=== PATIENT | male | born 1990 | race Hispanic/Latino ===

== ENCOUNTER 2021-10-02 12:33 | Emergency (ER) | payer OTHER, SELFPAY ==
--- OUTSIDE RECORDS SUMMARY | 2021-10-02 12:36 | XMS REPORT | Continuity of Care Document ---
:1990 Author Organization [facility] t Address [address] [place] [address] Care Team Providers Name Role Phone PCP, DOES NOT HAVE A Primary Care Physician Unavailable Reji Attending Clinician [phone] Jhonatan Attending Clinician Unavailable Timur Attending Clinician Unavailable Edita Attending Clinician Unavailable LAB53 Attending Clinician Unavailable Philip MONTERO Attending Clinician UNKNOWN Attending Clinician Unavailable Dennys PENN Attending Clinician Unavailable HOMERO PATEL Attending Clinician Unavailable Dennis Green Attending Clinician Unavailable Irena Attending Clinician Unavailable Blake LINN Attending Clinician Unavailable Physician, Primary or Family Admitting Clinician Unavailabl e Reji Unavailable [phone] Payers Payer Name Policy Type Policy Number Effective Date Expiration Date S ource Title X 11 [id number] 2021 2022 [facility]:00[facility]00 [facility]00[facility] [id number] 2021 00:00:00 Problems Condition Condition Condition Status Onset Resolution Last Treating Co mments Source Name Details Category Date Date Treatment Clinician Date BMI Condition Active 2021-06-13 Fernandez Mendoza 37.0-37.9 06-13 15:30:32 Vidhi Comm uni 00:00: ty 00 Health Obesity Condition Active 2021-06-13 Davidson Mendozaacy 06-13 15:30:32 Vidhi Communi 00:00: ty 00 Health Syphilis Condition Active 2021-06-06 Reji [facility] 06-06 10:52:06 Vidhi Communi 00:00: ty 00 Health Macular Condition Active 2021-06-03 Davidson Mendoza erythemato 05-31 21:49:36 Vidhi Com jairon us rash 00:00: ty 00 Health Joint Condition Active 2021-06-03 Fernandez Mendoza swelling 05-31 21:49:36 Vidhi Commu ni 00:00: ty 00 Health High risk Condition Active 2021-06-03 Elton Mendoza sexual 05-31 21:49:36 Vidhi Communi behavior 00:00: ty 00 Health Multiple Condition Active 2021-06-03 Elton Mendoza joint pain 05-31 21:49:36 Vidhi Com jairon 00:00: ty 00 Health No known No known Disease Kelse y active active Seybold problems problems Allergies, Adverse Reactions, Alerts Allergy Allergy Status Severity Reaction(s) Onset Inactive Treating Comm ents Source Name Type Date Date Clinician No Known DA Active U 2016-03 [facility] Allergie 2- Clear s 00:00: Titus 00 [facility] NO KNOWN Drug Active [facility] ALLERGIE Class ity of S [facility] Social History Social Habit Start Date Stop Date Quantity Comments Source Exposure to Not sure Haley brown SARS-CoV-2 (event) time of call 2021-07-04 2021-07-04 [facility] 14[facility] 14[facility]47[facility]40 PM Health alcohol use 2021-06-20 2021-06-20 Currently [facility] 09:35:54 09:35:54 Health drug use 2021-06-20 2021-06-20 Never [facility] ty 09:35:54 09:35:54 Health PHQ2 Questionairre 2021-06-20 2021-06-20 [facility] Score 09:35:54 09:35:54 Health is there any chance 2021-06-20 2021-06-20 No [facility] that you could be 09:35:54 09:35:54 Health ? social history E&M 2021-06-20 2021-06-20 Complicated/Open [facility] 09:35:54 09:35:54 . Not homeless. Health Employed. Sex at : Male. Sexual orientation: Lewis. Gender identity: Male. Age of first sexual intercourse: 20. Sexually Active: Yes. social history 2021-06-20 2021-06-20 reviewed today [facility] reviewed E&M 09:35:54 09:35:54 Health assessment of health 2021-06-20 2021-06-20 Adequate Lega cy Community literacy (NCQA [facility] 09:35:54 09:35:54 [facility] 2014 Standards, 3C10) passive cigarette 2021-06-20 2021-06-20 No [facility] smoke exposure 09:35:54 09:35:54 Health if the patient is 2021-06-20 2021-06-20 No [facility] using/has used a 09:35:54 09:35:54 Health vaping item, Current, Former, Never Used, Not asked sexual orientation 2021-06-20 2021-06-20 Lewis [facility] 09:35:54 09:35:54 Health patient considered to 2021-06-06 2021-06-06 No Leg acy Community be homeless 09:23:50 09:23:50 Health number of sexual 2021-04-24 2021-04-24 [facility] partners in last year 16:57:45 16:57:45 [facility] Gender of previous 2021-04-24 2021-04-24 Men [facility] sexual partner(s) 16:57:45 16:57:45 Health Gender of current 2021-04-24 2021-04-24 Men [facility] sexual partner(s) 16:57:45 16:57:45 Health high risk sexual 2021-04-24 2021-04-24 Yes Leg[facility]olyn [facility] ommunity behaviors 16:57:45 16:57:45 Health Have you ever 2021-04-24 2021-04-24 Yes Elton Comm unity received or given 16:57:45 16:57:45 Health money for drugs or sex? sex at 2021-04-24 2021-04-24 Male Elton Commu nity 16:57:45 16:57:45 Health Gender that patient 2021-04-24 2021-04-24 Men Betty Community is attracted to 16:57:45 16:57:45 Health Number of Partners in 2021-04-24 2021-04-24 Leg yenny [facility] Last 60 Days 16:57:45 16:57:45 Health Alcohol intake 2021-03-30 2021-03-30 Current drinker Kelse y Seybold 00:00:00 00:00:00 of alcohol (finding) Smoking Status Start Date Stop Date Source Never smoked tobacco (finding) [facility] Medications Ordered Filled Start Stop Current Ordering Indication Dosage Frequency Signature Comments Components Source Medication Medication Date Date Medication? Clinician (SIG) Name Name (KETOCONAZO Yes Vidhi Hanson Elton FERNANDEZ) 2 % 3-24 Reji with Communi SHAM 00:00: liberally ty 00 as Health directed three times a week for 4 weeks, then as needed for control Acetaminoph Yes [id number] 650mg Q8H Take 1 Haley en 650 MG 1-21 tablet Seybold oral Tab CR 00:00: (650 mg 00 total) by mouth every 8 hours as needed for pain Zinc 50 MG Yes Haley oral Tablet 1-17 Seybold 00:00: 00 Naproxen Yes Haley 250 MG oral 1-14 Seybold Tablet 00:00: 00 Levocetiriz Yes Haley ine 1-01 Seybold Dihydrochlo 00:00: ride (XYZAL 00 ALLERGY 24HR OR) Emtricitabi Yes Haley ne-Tenofovi 9-21 Seybold r AF 00:00: (Descovy) 00 200-25 MG oral Tablet Immunizations Ordered Immunization Filled Immunization Date Status Commen ts Source Name Name Covid-19 Vaccine 2021-03-28 Completed Haley petit ([employer]), Mrna-lnp, 00:00:00 Abimael Protein, Pf, 30mcg/0.3ml,IM Covid-19 Vaccine 2020-07-08 Completed Haley sweeneystan ([employer]), Mrna-lnp, 00:00:00 Abimael Protein, Pf, 30mcg/0.3ml,IM Covid-19 Vaccine 2020-06-16 Completed Haley sweeneystan ([employer]), Mrna-lnp, 00:00:00 Abimael Protein, Pf, 30mcg/0.3ml,IM MMR- Measles, Mumps, 2016-02-28 Completed Maria Eugenia España Rubella 00:00:00 Vital Signs Vital Name Observation Time Observation Value Comments Source Systolic blood 2021-03-30 16:34:00 130 mm[Hg] Haley Seybold pressure Diastolic blood 2021-03-30 16:34:00 80 mm[Hg] Kelse y Seybold pressure Heart rate 2021-03-30 16:34:00 115 /min Haley foxnisa Body temperature 2021-03-30 16:34:00 37.22 Laura Maria Eugenia fox Seybjose antonio Respiratory rate 2021-03-30 16:34:00 18 /min Maria Eugenia España Body height 2021-03-30 16:34:00 170.2 cm Haley Maxwell foxnisa Body weight 2021-03-30 16:34:00 109.498 kg Haley foxnisa BMI 2021-03-30 16:34:00 37.81 kg/m2 Haleyarmando foxnisa Oxygen saturation in 2021-03-30 16:34:00 98 /min Haley Seeber Arterial blood by Pulse oximetry oxygen saturation, 2021-06-20 09:35:54 99 /min [facility] oximetry Health blood pressure, 2021-06-20 09:35:54 84 mm[Hg] Leg[facility] diastolic Health blood pressure, 2021-06-20 09:35:54 136 mm[Hg] Leg[facility] systolic Health respiratory rate E&M 2021-06-20 09:35:54 18 /min [facility] Health pulse rate 2021-06-20 09:35:54 74 /min [facility] temperature E&M 2021-06-20 09:35:54 98.2 [degF] [facility] Health weight E&M 2021-06-20 09:35:54 232 [lb_av] [facility] weight in kilograms 2021-06-20 09:35:54 105.45 kg L [facility] E& Health height in 2021-06-20 09:35:54 167.64 cm [facility] centimeters E& Health temperature site 2021-06-20 09:35:54 oral Lega cy [facility] Health blood pressure, 2021-06-13 09:53:41 97 mm[Hg] Leg[facility] diastolic Health blood pressure, 2021-06-13 09:53:41 144 mm[Hg] Leg[facility] systolic Health oxygen saturation, 2021-06-13 09:53:41 98 /min [facility] rate E&M 2021-06-13 09:53:41 18 /min [facility] pulse rate 2021-06-13 09:53:41 85 /min [facility] temperature E&M 2021-06-13 09:53:41 98.0 [degF] Leg[facility] Health weight E&M 2021-06-13 09:53:41 232 [lb_av] [facility] weight in kilograms 2021-06-13 09:53:41 105.45 kg L [facility] E& Health temperature site 2021-06-13 09:53:41 oral Lega cy [facility] Health height in 2021-06-13 09:53:41 167.64 cm [facility] centimeters E& Health blood pressure, 2021-06-06 09:23:50 130 mm[Hg] Leg[facility] systolic Health oxygen saturation, 2021-06-06 09:23:50 98 /min [facility] respiratory rate E&M 2021-06-06 09:23:50 18 /min [facility] Health pulse rate 2021-06-06 09:23:50 91 /min [facility] temperature E&M 2021-06-06 09:23:50 97.8 [degF] [facility]&M 2021-06-06 09:23:50 230.38 [lb_av] [facility] weight in kilograms 2021-06-06 09:23:50 104.72 kg L Replaced by [facility] temperature site 2021-06-06 09:23:50 oral Lega [facility] height in 2021-06-06 09:23:50 167.64 cm [facility] centimeters E& Health blood pressure, 2021-06-06 09:23:50 85 mm[Hg] [facility] diastolic [facility] oxygen saturation, 2021-05-31 13:31:13 99 /min [facility] oximetry Health blood pressure, 2021-05-31 13:31:13 85 mm[Hg] [facility] diastolic [facility] blood pressure, 2021-05-31 13:31:13 135 mm[Hg] [facility] systolic Health respiratory rate E&M 2021-05-31 13:31:13 18 /min [facility] pulse rate 2021-05-31 13:31:13 76 /min [facility] temperature site 2021-05-31 13:31:13 oral Lega [facility] temperature E&M 2021-05-31 13:31:13 98.3 [degF] [facility] weight E&M 2021-05-31 13:31:13 231 [lb_av] [facility] weight in kilograms 2021-05-31 13:31:13 105 kg L Replaced by [facility] height in 2021-05-31 13:31:13 167.64 cm [facility] centimeters E& Health Procedures Procedure Date / Time Performing Clinician Source Performed IM Injection of 2021-06-13 15:30:04 [facility] Antibiotic Health Injection, penicillin g 2021-06-06 09:47:26 Vidhi Mendoza [facility] benzathine (Bicillin [facility] [place]), 1.2 million units/2 mL Venipuncture 2021-05-31 14:09:08 Vidhi Mendoza Commu nity [facility] 2021-05-08 14:13:33 Juice Vogel Commu nity Education/Supportive Health Counseling Health 2021-04-30 15:59:01 Juice Vogel Commu nity Education/Supportive Health Counseling At-Home HIV Test Kit 2021-04-25 08:58:35 Juice Vogel [facility] 2021-04-25 08:46:24 Juice Vogel Commu nity Education/Supportive Health Counseling Encounters Start End Encounter Admission Attending Care Care Encounter Source Date/Time Date/Time Type Type Clinicians Facility Department ID 2021-06-20 2021-06-22 Office Vidhi Mendoza [facility] [id number] Elton 00:00:00 00:00:00 Visit Consuelo Israel 204 13 [facility] Rhona Ding [facility] 2021-06-13 2021-06-13 Office Vidhi Mendoza [facility] [id number] [facility] 00:00:00 00:00:00 Visit Consuelo Israel 204 06 [facility] 2021-06-06 2021-06-06 Office Vidhi Mendoza [facility] [id number] [facility] 00:00:00 00:00:00 Visit Consuelo Israel 203 30 [facility] Lay [facility] 2021-05-31 2021-06-03 Office Vidhi Mendoza [facility] [id number] [facility] 00:00:00 00:00:00 Visit Consuelo Israel 203 24 [facility] 2021-04-02 2021-04-02 Outpatient LAB53 HALEY ELIZONDO [id number] Haley 11:20:00 11:20:00 Seybol d 2021-03-30 2021-03-30 Office ELIS Palacios [id number] Haley 10:45:00 11:00:00 Visit Sara TITUS [id number] S marisabel [id number] 2021-03-28 2021-03-28 Outpatient R UNKNOWN, ATTENDING [facility] [id number] Univers 10:30:00 11:05:41 KINGSLEY PENN i [facility] 2021-03-28 2021-03-28 Outpatient R [facility] [id number] Univers 10:30:00 10:30:00 [id number] [facility] 2021-03-24 2021-03-24 Outpatient R AMANDA, [facility] [id number] Univers 11:10:00 11:10:00 RADHA [facility] 2021-03-23 2021-03-23 Emergency EM Tsau, [facility]ACL RE [id number] [facility] 17:50:00 22:26:00 Kuldip [id number] [facility] 2021-03-23 2021-03-23 Emergency EM Tsau, HCACL HCACL [id number] [facility] 17:50:00 22:26:00 Kuldip 82 [facility] 2021-03-19 2021-03-19 Emergency EM Osborn, [facility]ACL RE [id number] [facility] 00:30:00 02:03:00 Markell [id number] [facility] 2021-03-19 2021-03-19 Emergency EM Osborn, HCACL HCACL [id number] [facility] 00:30:00 02:03:00 Markell 36 [facility] 2020-07-08 2020-07-08 Outpatient R KAVEH, [facility] [id number] Univers 12:30:00 12:30:00 ONEL [facility] Results Test Description Test Time Test Comments Results Result Comments Source c-reactive protein, quantitative, serum 2021-05-31 14:23:00 Test Item Value Reference Range Interpretation Comme nts c-reactive protein, quantitative, serum (test code = 1988-5) 51 mg/ L 0-10 H [facility] surface [id number] 14:23:00 Test Item Value Reference Range Interpretation Comments hepatitis B surface antigen (test Negative Negative code = 79) [facility]th[facility] sedimentation [id number] 14:23:00 Test Item Value Reference Range Interpretation Comments erythrocyte sedimentation rate (test 32 mm/h 0-15 H code = 4537-7) [facility], [id number] 14:23:00 Test Item Value Reference Range Interpretation Comments uric acid, serum (test code = 9.7 mg/dL 3.8-8.4 H 3084-1) [facility] C antibody, [id number] 14:23:00 Test Item Value Reference Range Interpretation Comments hepatitis C antibody, serum (test code <0.1 0.0-0.9 = 5199-5) [facility]-CMIA (Chemiluminescent Microparticle Immuno Assay) 2021-05-31 14:23:00 Test Item Value Reference Range Interpretation Comments HIV-CMIA (Chemiluminescent Non Reactive Non Reactive Microparticle Immuno Assay) (test code = 031633) [facility] UnionTreponema pallidum particle agglutination assay (TPPA test)2021-05-31 14:23:00 Test Item Value Reference Range Interpretation Comments Treponema pallidum particle Reactive Non Reactive A agglutination assay (TPPA test) (test code = 60179-7) [facility] Union[facility]id plasma reagin antibody, [id number] 14:23:00 Test Item Value Reference Range Interpretation Comments rapid plasma reagin 1:256 See_Comment H [Automa sallie message] The antibody, serum (test system which generated code = 5291-0) this result t ransmitted reference range : NonRea<1:1. The reference range was not u sed to interpret this result as normal/abnormal . [facility] Unionrheumatoid [id number] 14:23:00 Test Item Value Reference Range Interpretation Comments rheumatoid factor (test code = 12.5 [iU]/mL <14.0 58549-1) [facility] UnionNeisseria gonorrhoeae DNA [id number] 14:23:00 Test Item Value Reference Range Interpretation Comments Neisseria gonorrhoeae DNA probe Negative Negative (test code = 39143-6) [facility]lamydia DNA [id number] 14:23:00 Test Item Value Reference Range Interpretation Comments chlamydia DNA probe (test code = Negative Negative 99647-5) [facility] Unionimmature granulocytes, percentage of total cells, blood 2021-05-31 14:23:00 Test Item Value Reference Range Interpretation Comments immature granulocytes, percentage of 1 % total cells, blood (test code = 71783-5) [facility] Union[facility]ophil count, [id number] 14:23:00 Test Item Value Reference Range Interpretation Comments basophil count, absolute (test 0.1 x10E3/uL 0.0-0.2 code = 26882-0) [facility] HealthEosinophil Absolute [id number] 14:23:00 Test Item Value Reference Range Interpretation Comments Eosinophil Absolute Count (test 0.2 X10E3/UL 0.0-0.4 code = 79460-0) [facility] Healthmonocyte count, blood, [id number] 14:23:00 Test Item Value Reference Range Interpretation Comments monocyte count, blood, automated 0.7 X10E3/UL 0.1-0.9 (test code = 742-7) [facility] count, blood, [id number] 14:23:00 Test Item Value Reference Range Interpretation Comments lymphocyte count, blood, 2.4 X10E3/UL 0.7-3.1 automated (test code = 731-0) [facility] UnionAbsolute [id number] 14:23:00 Test Item Value Reference Range Interpretation Comments Absolute Neutrophils (test code 6.7 X10E3/UL 1.4-7.0 = 99294-5) [facility] Healthbasophils as percent of blood [id number] 14:23:00 Test Item Value Reference Range Interpretation Comments basophils as percent of blood 1 % leukocytes (test code = 707-0) [facility] Healtheosinophils as percent of blood [id number] 14:23:00 Test Item Value Reference Range Interpretation Comments eosinophils as percent of blood 2 % leukocytes (test code = 713-8) [facility] Healthmonocytes as percent of blood [id number] 14:23:00 Test Item Value Reference Range Interpretation Comments monocytes as percent of blood 7 % leukocytes (test code = 5905-5) [facility] Union[facility]ocytes as percent of blood [id number] 14:23:00 Test Item Value Reference Range Interpretation Comments lymphocytes as percent of blood 23 % leukocytes (test code = 736-9) [facility] Unionneutrophils as percent of blood [id number] 14:23:00 Test Item Value Reference Range Interpretation Comments neutrophils as percent of blood 66 % leukocytes (test code = 770-8) [facility] Unionplatelet [id number] 14:23:00 Test Item Value Reference Range Interpretation Comments platelet count (test code = 483 X10E3/UL 150-450 H 777-3) [facility] Union[facility] blood cell distribution [id number] 14:23:00 Test Item Value Reference Range Interpretation Comments red blood cell distribution width 13.9 % 11.6-15.4 (test code = 788-0) [facility] hemoglobin concentration, [id number] 14:23:00 Test Item Value Reference Range Interpretation Comments mean corpuscular hemoglobin 29.8 G/DL 31.5-35.7 L concentration, RBC (test code = 786-4) [facility] corpuscular hemoglobin, [id number] 14:23:00 Test Item Value Reference Range Interpretation Comments mean corpuscular hemoglobin, RBC 23.0 pg 26.6-33.0 L (test code = 785-6) [facility] corpus[facility] volume, [id number] 14:23:00 Test Item Value Reference Range Interpretation Comments mean corpuscular volume, RBC (test code 77 fL 79-97 L = 787-2) [facility] Unionhematocrit, [id number] 14:23:00 Test Item Value Reference Range Interpretation Comments hematocrit, blood (test code = 4544-3) 42.3 % 37.5-51.0 [facility] Unionhemoglobin, [id number] 14:23:00 Test Item Value Reference Range Interpretation Comments hemoglobin, blood (test code = 12.6 g/dL 13.0-17.7 L 718-7) [facility] Unionerythrocyte (RBC) [id number] 14:23:00 Test Item Value Reference Range Interpretation Comments erythrocyte (RBC) count (test 5.48 X10E6/UL 4.14-5.80 code = 789-8) [facility] Unionleukocyte count, [id number] 14:23:00 Test Item Value Reference Range Interpretation Comments leukocyte count, blood (test 10.1 X10E3/UL 3.4-10.8 code = 6690-2) [facility] UnionB-TYPE NATRIURETIC [id number] 20:28:00 Test Item Value Reference Range Interpretation Comments B-TYPE NATRIURETIC PEPTIDE (test 19.0 PG/ML 0-100 N code = BNP) BASIC METABOLIC [id number] 20:21:00 Test Item Value Reference Range Interpretation Comments SODIUM (test code = NA) 139 mEq/L 134-147 N POTASSIUM (test code = 4.0 mEq/L 3.4-5.0 N K) CHLORIDE (test code = 106 mEq/L 100-108 N CL) CARBON DIOXIDE (test 26 mEq/l 21-33 N code = CO2) ANION GAP (test code = 11 0-20 N GAP) GLUCOSE (test code = 104 mg/dL 70-110 N GLU) BLOOD UREA NITROGEN 9 mg/dL 7-18 N (test code = BUN) GLOMERULAR FILTRATION 112.8 105-110 H Units of measure = RATE (test code = GFR) ml/mi n/1.73 m2 CREATININE (test code = 0.8 mg/dL 0.6-1.3 N CREAT) CALCIUM (test code = 9.0 mg/dL 8.0-10.5 N CA) TROP-I HIGH [id number] 20:21:00 Test Item Value Reference Range Interpretation Comments TROP-I HIGH 3 ng/L 0-54 N CAUTION: Units of the SENSITIVITY (test current te st methodology code = TROPIHS) (ng/L) diffe rfrom the prior test methodolog y (ng/mL) by a factor of 1000. 99th Percentile Upper Reference Limit (URL): Females: 34 ng/LMales: 54 ng/L In order to distin guish acute elevations of h igh sensitivitytrop onin from other clinical conditions, the FourthUnive rsal Definition of M yocardial Infarction stre ssesclinical assessment and the demonstration o f a rise and/orfall in s erial troponin result s above the URL. These resu lts were obtained using [employer] IM TnI Hreagent. Results from di kelvin methodologies s hould not becompared to o ne another as quantitative results and URLs mayvary by method. CBC W/AUTO [id number] 20:05:00 Test Item Value Reference Range Interpretation Comments WHITE BLOOD CELL (test code = 10.0 x10 3/uL 4.5-11.0 N WBC) RED BLOOD CELL (test code = 5.42 x10 6/uL 4.00-5.60 N RBC) HEMOGLOBIN (test code = HGB) 14.3 g/dL 12.5-16.9 N HEMATOCRIT (test code = HCT) 42.8 % 37.5-50.7 N MEAN CELL VOLUME (test code = 79.0 fL 81.0-99.0 L MCV) MEAN CELL HGB (test code = MCH) 26.4 pg 27.0-33.0 L MEAN CELL HGB CONCETRATION 33.4 g/dL 33.0-37.0 N (test code = MCHC) RED CELL DISTRIBUTION WIDTH CV 12.9 % 11.5-14.5 N (test code = RDW) RED CELL DISTRIBUTION WIDTH SD 36.6 fL 37.0-54.0 L (test code = RDW-SD) PLATELET COUNT (test code = 353 x10 3/uL 150-400 N PLT) MEAN PLATELET VOLUME (test code 8.8 fL 7.0-9.0 N = MPV) NEUTROPHIL % (test code = NT%) 70.6 % 56.0-77.0 N IMMATURE GRANULOCYTE % (test 0.4 % 0.0-2.0 N code = IG%) LYMPHOCYTE % (test code = LY%) 16.8 % 14.0-32.0 N MONOCYTE % (test code = MO%) 11.3 % 4.8-9.0 H EOSINOPHIL % (test code = EO%) 0.4 % 0.3-3.7 N BASOPHIL % (test code = BA%) 0.5 % 0.0-2.0 N NUCLEATED RBC % (test code = 0.0 % 0-0 N NRBC%) NEUTROPHIL # (test code = NT#) 7.05 x10 3/uL 2.0-7.6 N IMMATURE GRANULOCYTE # (test 0.04 x10 3/uL 0.00-0.03 H code = IG#) LYMPHOCYTE # (test code = LY#) 1.68 x10 3/uL 1.0-3.8 N MONOCYTE # (test code = MO#) 1.13 x10 3/uL 0.1-0.8 H EOSINOPHIL # (test code = EO#) 0.04 x10 3/uL 0.0-0.2 N BASOPHIL # (test code = BA#) 0.05 x10 3/uL 0.0-0.2 N NUCLEATED RBC # (test code = 0.00 x10 3/uL 0.0-0.1 N NRBC#) MANUAL DIFF REQUIRED (test code NO = MDIFF) - XR CHEST 1 [id number] 00:00:00 [facility] : 1990 Sex: M FAX: Kylie Bernstein [phone] [place]: [address]: REG Name: JEWELS KEE [facility] : 1990 Age/S: 31/M [address] [place] [address] Bl Unit #: [id number] Loc: NatalieGlen [place] [address] Phys: Kylie Davis Acct: [id number] Dis Date:Status: REG ER PHONE #: [phone] Exam Date: 03/23/20211818 FAX #: [phone] Reason: Chest Pain EXAMS: CPT CODE: [id number] XR CHEST 1 V 53392 PROCEDURE INFORMATION: Exam: XR Chest Exam date and time: 03/23/2021 6:19 PM Age: 31 years old Clinical indication: Pain; Chest pressure; Additional info: Chest pain TECHNIQUE: Imaging protocol: XR of the chest. Views: 1 view. COMPARISON: CR XR CHEST 1V 03/19/2021 1:06 AM FINDINGS: Lungs: No significant interstitial edema. No confluent airspace consolidation. Pleural spaces: Unremarkable. No pleural effusion. No pneumothorax. Heart/Mediastinum:Heart size is within normal limits. Unremarkable mediastinal contours. Bones/joints: No acute fracture. IMPRESSION: 1. No acute abnormality. 2. No significantinterval change. at 1854 Reported and signed by: Rodolfo Bravo M.D. CC: Kylie TOTH [facility] Technologist: RT Claudine(R) Trnscrd Date/Time/By: 03/23/2021 (1853) : By: [email or web address] Orig Print D/T: S: 03/23/2021 (1853) PAGE 1 SignedReportCOVID 19 INHOUSE [id number] 01:30:00 Test Item Value Reference Range Interpretation Comments COVID 19 INHOUSE Negative Negative A negative result is AG (test code = presumptive and should be [id number]) confirmedwith a n FDA authorized mole cular assay, if necessary fo rpatient management.A po sitive result does not rule out co-infections w ithother pathogens.This test detects both viable (li ve) and non-viable,SARS -CoV, and SARS-CoV-2. Poncho t performance dep ends on theamount of vi yoana (antigen) in th e sample.This poncho t has not been FDA cleare d or approved; the t est hasbeen authorized by Rodolfo LILLY under an Emergency Use Authorization(E UA) for use by laboratories certified under the CLIA thatmeet the requirements to perform moderate, high or waivedcomplexit y tests. - XR CHEST 1 [id number] 00:00:00 [facility] 1990 Sex: M FAX: Nimesh Mann APR [phone] [place]: St: REG Name: [facility] : 1990 Age/S: 31/M [address] [place] [address] Unit #: [id number] Loc: [place] [address] Phys: Nimesh Mann APRNNP Acct: [id number] Dis Date:Status: REG ER PHONE #: [phone] Exam Date: 03/19/2021 0115 FAX #: [phone] Reason: CP, BACK PAIN EXAMS: CPT CODE: [id number] XR CHEST 1 V 38588 PROCEDURE INFORMATION: Exam: XR Chest Exam date and time: 03/19/2021 1:06 AM Age: 31 years old Clinical indication: Other:Chest pain; Additional info: Cp, back pain TECHNIQUE: Imaging protocol: XR of the chest. Views: 1 view. COMPARISON: No relevant prior studies available.FINDINGS: Lungs: No focal consolidation. Pleural spaces: Unremarkable. No pleural effusion. No pneumothorax. Heart/Mediastinum: No cardiomegaly. Bones/joints: No acute abnormality. IMPRESSION: No acute findings. at 0123 Reported and signed by: Chago Madrigal M.D. CC: Nimesh Mann Technologist: RT Samantha(Simón) Trnscrd Date/Time/By: 03/19/2021 (0123) : By: [email or web address] Orig Print D/T: S: 03/19/2021 (0123) PAGE 1 Signed Report
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
[2021-10-02 14:36] VITALS: BP 158/88; TEMP 97.8; O2SAT 100
== END 2021-10-02 14:24 | disposition home or self-care (01) ==
LOC: ER 12:33
DX: S13.4XXA Sprain of ligaments of cervical spine, initial encounter (principal)
CPT/HCPCS: 72040; 99283